=== PATIENT | female | born 1930 | race Caucasian/White ===

== ENCOUNTER 2016-10-17 19:33 | Inpatient (IN) | payer MEDICARE, BC ==
--- NOTE | ~2016-10-17 | CN ---
Consultation Report [facility] [address] [place]. [address] NAME: DASIA ROMERO : 31 STATUS : ADM Viviana PAT#: [id number] AGE: 86 ADM/REG DATE : 10/17/16 MR#: [id number] REPORT SERV DATE: 10/19/16 DICTATED BY: PHAN SOW DATE: 10/19/16 REPORT STATUS : Draft TRANSCRIBED BY: MODFrancine DATE: 10/19/16 CARDIOLOGY CONSULTATION NOTE DATE OF CONSULTATION: 10/19/2016 REASON FOR CONSULTATION: Elevated cardiac biomarkers in an 86-year-old woman with a history of paroxysmal atrial fibrillation. HISTORY OF PRESENT ILLNESS: Ms Romero is an 86-year-old woman with a history of partial colectomy and colostomy. The patient has a history of frequent partial small-bowel obstructions. The patient also has a history of paroxysmal atrial fibrillation, and has seen me in Cardiology Clinic for this complaint. The patient was admitted to [facility] with a 24 to 48 hour history of crampy abdominal pain, nausea, and vomiting. The patient was felt to have a partial small-bowel obstruction. This apparently is a frequent problem for the patient. Her symptoms generally resolve with rehydration and mild treatment with laxatives. The patient was noted to be in atrial fibrillation with a rapid ventricular response at the time of her admission. However, the patient denies any significant chest pain or dyspnea. Since her admission, the patient has been started on IV fluid repletion. She is now taking her p.o. medications, and is back on metoprolol 25 mg p.o. twice daily. At this time, the patient's heart rate is well-controlled with a rate of approximately 90 beats per minute. The patient presently denies any unusual chest pain, dyspnea, orthopnea, palpitations, or dizziness. She reports that she is hungry, and that her nausea has resolved. PAST MEDICAL HISTORY: 1. History of multiple partial small-bowel obstructions. 2. Paroxysmal atrial fibrillation. 3. Mild aortic valve stenosis. 4. Hypertension. 5. Gastroesophageal reflux disease. 6. Peptic ulcer disease. 7. Rectal tumor status post partial colectomy. 8. Alzheimer's type dementia. PAST SURGICAL HISTORY: 1. Partial bowel resection with colostomy. 2. Hysterectomy. 3. Appendectomy. 4. Cholecystectomy. 5. Hip replacement. 6. Back surgery. 7. Previous colostomy revision. Consultation Report [place] [id number] [place]. [address] NAME: DASIA ROMERO : 31 STATUS : ADM Viviana PAT#: [id number] AGE: 86 ADM/REG DATE : 10/17/16 MR#: [id number] REPORT SERV DATE: 10/19/16 DICTATED BY: PHAN SOW DATE: 10/19/16 REPORT STATUS : Draft TRANSCRIBED BY: ROSALIND DATE: 10/19/16 FAMILY HISTORY: Negative for early coronary heart disease or sudden cardiac . SOCIAL HISTORY: No significant history of tobacco, alcohol, or drug use. The patient lives at home with her . ALLERGIES: THE PATIENT HAS DOCUMENTED ALLERGIES TO PENICILLINS WHICH CAUSES SWELLING AND ITCHING; AND ADHESIVE TAPE, WHICH ALSO CAUSES A RASH AND ITCHING. HOME MEDICATIONS: 1. Acetaminophen 1 g p.o. three times daily as needed for pain. 2. Eliquis 2.5 mg p.o. twice daily. 3. Atorvastatin 20 mg p.o. q.h.s. 4. Calcitonin nasal spray one spray in alternating nostrils daily. 5. Os-Chaparro D 500 mg p.o. daily. 6. Vitamin D 2000 units p.o. twice daily. 7. Nexium 20 mg p.o. q.a.m. 8. Lisinopril/hydrochlorothiazide 20/12.5 mg 1 tablet p.o. q.p.m. 9. Namenda 10 mg p.o. twice daily. 10.Metoprolol tartrate 25 mg p.o. twice daily. 11.Multivitamin 1 tablet daily. 12.MiraLAX powder 1 packet daily. 13.Exelon patch 13.3 mg topical q.a.m. REVIEW OF SYSTEMS: A complete 12-system review was performed. This is noncontributory except for the pertinent positives and negatives noted in the history of present illness above. PHYSICAL EXAMINATION: VITAL SIGNS: Temperature is 98.9 degrees Fahrenheit, blood pressure is 102/50 mmHg, respirations 14, and oxygen saturation is 96% on a 2 L nasal cannula. CONSTITUTIONAL: The patient is a frail elderly appearing white woman, who is in no acute distress. EYES: PERRL, EOMI, clear conjunctiva. HEAD/MNT: NCAT with moist mucous membranes and grossly normal hard and soft palate. NECK: Supple with no obvious thyromegaly or lymphadenopathy CARDIOVASCULAR: There is an irregularly irregular rhythm with a variable S1 and a slightly diminished aortic component of the second heart sound. There is a grade 2/6 systolic ejection murmur noted at the right upper sternal border radiating to the sternal notch. The jugular venous pressure is normal. PULMONARY: Clear to auscultation bilaterally with no wheezing, rales, rhonchi, or dullness to percussion. ABDOMEN: A colostomy bag is in place in the left lower quadrant. The abdomen is soft, nontender, nondistended with normoactive bowel sounds. There is no tenderness to palpation noted. The colostomy is clean, dry, and intact. EXTREMITIES: There is no clubbing, cyanosis, or edema noted at this time. Consultation Report [address] [place]. [address] NAME: DSAIA ROMERO : 31 STATUS : ADM Viviana PAT#: [id number] AGE: 86 ADM/REG DATE : 10/17/16 MR#: [id number] REPORT SERV DATE: 10/19/16 DICTATED BY: PHAN SOW DATE: 10/19/16 REPORT STATUS : Draft TRANSCRIBED BY: ROSALIND DATE: 10/19/16 MUSCULOSKELETAL: Grossly normal strength and range of motion in all extremities INTEGUMENTARY: Skin appears intact with no bruises, wounds or active lesions noted NEURO/PSYC: Alert and oriented x3, with no dysarthria, facial droop or lateralizing weakness noted. DIAGNOSTIC DATA: 12-lead EKG: The patient's 12-lead EKG dated 10/17/2016 shows atrial fibrillation with a rapid ventricular response, and occasional PVCs versus aberrantly conducted complexes. There are nonspecific ST/T-wave abnormalities. CHEST X-RAY: The chest x-ray shows no acute cardiopulmonary process. LABORATORY DATA: Labs from 10/20/2015 show a urine culture which is positive for 50,000 units/mL of gram-negative bacilli. CBC shows a white blood cell count of 4.6, hemoglobin of 8.6, hematocrit of 27, and platelets 144. Electrolytes show a sodium of 144, potassium 3.4, chloride is 110, CO2 of 25, BUN 25, creatinine is 1.34, glucose is 118, calcium 7.5, magnesium 2.1, and phosphorus is 2.3. The patient has had several sets of troponin I. The most recent troponin, which is also the highest troponin as 0.09. ASSESSMENT AND PLAN: 1. Atrial fibrillation with rapid ventricular response: The patient's heart rate is decreased with the reinstitution of metoprolol and with IV rehydration. No surgery is planned at this time, so I would recommend the patient continue her home dose of Eliquis 2.5 mg twice daily. Should the patient not spontaneously convert, we will consider DC cardioversion. I do not feel that transesophageal echocardiography will be necessary, as the patient has been on oral anticoagulant more less continuously since July of 2016. She has been in atrial fibrillation for less than 48 hours. 2. Elevated cardiac biomarkers: This represents a demand ischemia/WHO type 2 myocardial infarction from atrial fibrillation with rapid ventricular response, dehydration, and partial small bowel obstruction. The patient has had a fairly recent low risk stress test. Her left ventricular systolic function is normal based on recent echocardiogram. The patient is having no symptoms of angina. I would recommend no further treatment, excepting continuation of atorvastatin, and Eliquis. We will consider adding aspirin 81 mg daily to the patient's medication regimen. 3. Aortic stenosis: The patient has a history of mild aortic valve stenosis. Her exam is consistent with mild aortic stenosis. I would recommend no further workup at this time. Thank you for allowing me to participate in the care Ms Romero. The Cardiology Service will continue to follow the patient during this hospitalization. GLADYS/MODL Phan Sow MD Consultation Report [address] [place]. [id number] NAME: DASIA ROMERO : 31 STATUS : ADM Viviana PAT#: [id number] AGE: 86 ADM/REG DATE : 10/17/16 MR#: [id number] REPORT SERV DATE: 10/19/16 DICTATED BY: PHAN SOW DATE: 10/19/16 REPORT STATUS : Draft TRANSCRIBED BY: ANJELICAL DATE: 10/19/16 / [id number] CC: Maggie Duque M.D.
--- NOTE | ~2016-10-17 | HP ---
History And Physical [place] [id number] [facility] [place]. [address] NAME: DASIA ROMERO : 31 STATUS : ADM Viviana PAT#: [id number] AGE: 86 ADM/REG DATE : 10/17/16 MR#: [id number] REPORT SERV DATE: 10/17/16 DICTATED BY: FIONA JACINTO DATE: 10/17/16 REPORT STATUS : Draft TRANSCRIBED BY: MODL DATE: 10/17/16 DATE OF ADMISSION: 10/17/2016 CHIEF COMPLAINT: Abdominal pain with nausea, vomiting x2 days. HISTORY OF PRESENT ILLNESS: The patient is an 86-year-old female with past medical history of coronary artery disease, recent diagnosis of atrial fibrillation this year on anticoagulation, ulcers, reflux, colectomy with ostomies with history of rectal cancer followed by Dr. Pate, who has had multiple admissions for bowel obstruction, who was having bowel obstruction over the last few days in which she has not taken p.o. medications. Symptoms have been constant, moderate severity, has had mild pressure discomfort with cramping episodes and no output over the last 24 to 48 hours. There is no radiating of symptoms but has had nausea, vomiting, weakness, palpitations. Upon arrival the patient was noted to be at a heart rate of 150. Symptoms are worsened with palpation but no relieving symptoms. Symptoms still currently present but improved after having medications as nausea has now resolved. REVIEW OF SYSTEMS: For additional review of systems due to the patient's mild dementia, the patient grossly denies majority of review of systems, so review of systems mainly taken from family member at bedside which includes weakness, tachycardia, nausea, vomiting, abdominal pain, decreased p.o. intake, abdominal discomfort, decreased bowel output. Otherwise 10-point reported negative. PAST MEDICAL HISTORY: Hypertension, reflux, rectal tumor, duodenal ulcer, and NH. SURGICAL HISTORY: APR, hysterectomy, appendectomy, cholecystectomy, hip replacement, back surgery, colostomy revision. ALLERGIES: PENICILLIN AND TAPE. SOCIAL HISTORY: No reported smoking, alcohol, or illicits. Lives with who has Parkinson's. FAMILY HISTORY: Negative current acute problem. MEDICATIONS: Tylenol, Eliquis, Lipitor, calcitonin, Os-Chaparro vitamin D, Nexium, Zestoretic, Namenda, Lopressor, multivitamin, MiraLAX, Exelon. EKG rate of 153 atrial fibrillation with RVR. PHYSICAL EXAMINATION: VITAL SIGNS: The patient's blood pressure 104/56, pulse anywhere from 80 to 115, respirations 18, temperature 97.6, O2 sats 97%. GENERAL: Elderly slightly frail, no acute distress. EYES: No scleral icterus. EOMI. History And Physical [address] [address] NAME: DASIA ROMERO : 31 STATUS : ADM Viviana PAT#: [id number] AGE: 86 ADM/REG DATE : 10/17/16 MR#: [id number] REPORT SERV DATE: 10/17/16 DICTATED BY: FIONA JACINTO DATE: 10/17/16 REPORT STATUS : Draft TRANSCRIBED BY: ROSALIND DATE: 10/17/16 ENT: Dry mucous membranes. Nares patent. CV: Irregular. When rate controlled is 1 to 1 beat pulse ratio however had tachycardic episodes greater than 130. The patient does have a 2 to 1 beat pulse ratio. No pedal edema. GI: Soft, no current tenderness at this time. Negative rebound. No output and ostomy at this time but clean stoma. : Deferred. MUSCULOSKELETAL: Moves all extremities x4. SKIN: Warm and dry. LYMPH: No cervical or supraclavicular lymphadenopathy. HEME: No bleeding or bruising. NEURO: Alert and oriented. Moves all extremities. Alert and oriented to person and situation, mildly disoriented to most recent history with dementia of daily events. PSYCH: Appropriate mood and affect, pleasant. DATA: CT of abdomen and pelvis mildly dilated small bowel left mid abdomen and a few scattered air-fluid levels suggesting a very low grade partial small bowel versus asymmetric ileus. Stable changes of prostatectomy and partial sigmoidectomy with colostomy site. Stable soft tissue thickening presacral space, gas air bubble could represent stable small fistula tract similar seen on 03/13/2016 nonspecific ascites around the liver and spleen slightly more prominent than recent CT on 08/11/2016. No pneumoperitoneum. Stable postsurgical changes of cholecystectomy, appendectomy, hysterectomy, right total hip arthroplasty, chronic insufficiency fracture T12 and fusion lower lumbosacral spine. LABS: Urinalysis moderate leuk esterase with 27. WBCs 100 protein. CMP: BUN and creatinine 34 and 1.55, troponin 0.08, calcium 7.9, lactate 2.0. CBC: WBC count 6.2, H and H 11.7 and 35.4, MCV 96.5, platelets 215. ASSESSMENT AND PLAN: 1. Atrial fibrillation. 2. Partial obstruction mild ileus. 3. Azotemia dehydration. 4. Hypotension. 5. Hyperlipidemia. 6. Rectal cancer with ostomy history. 7. Questionable urinary tract infection. PLAN: 1. For atrial fibrillation on Eliquis, has not been able to take medications over the last 24 to 48 48 hours. The patient was bolused Cardizem in the emergency room and is on drip at this time, but did have resultant drop in blood pressure due to hypovolemia, given IV fluids, closely monitor on cardiac tele until able to tolerate p.o. metoprolol. The patient has been off metoprolol greater than 48 hours and likely caused decompensation and exacerbated by small ileus. We will provide Lovenox until able to restart Eliquis. 2. Partial obstruction ileus. Restart bowel regimen Reglan and monitor KUB in a.m. 3. Azotemia dehydration. IV fluids. History And Physical [address] [address] NAME: DASIA ROMERO : 31 STATUS : ADM Viviana PAT#: [id number] AGE: 86 ADM/REG DATE : 10/17/16 MR#: [id number] REPORT SERV DATE: 10/17/16 DICTATED BY: FIONA JACINTO DATE: 10/17/16 REPORT STATUS : Draft TRANSCRIBED BY: MODL DATE: 10/17/16 4. Hypotension. IV fluids given in emergency room appears to be responding and likely secondary to Cardizem bolus hopefully able to wean off Cardizem bolus as the patient continues to be transitioned back to beta-sondra. 5. Hyperlipidemia, statin when tolerating p.o. 6. Rectal cancer ostomy. Follows with Dr. Pate, courtesy notify with repeat episodes ileus. 7. Questionable UTI. Does not appear symptomatic. No leukocytosis. We will check procalcitonin. Monitor WBC count. Concern for clean-catch monitor cultures has had negative urine cultures in the past. We will hold antibiotics at this time. Start if clinical indication noted. DDN/MODL Fiona Jacinto MD / [id number] CC: Maggie Quiroga M.D.
--- NOTE | ~2016-10-17 | DS ---
Discharge Summary [facility] [address] [place]. [address] NAME: DASIA ROMERO : 31 STATUS : DIS IN PAT#: [id number] AGE: 86 ADM/REG DATE : 10/17/16 MR#: [id number] REPORT SERV DATE: 10/21/16 DICTATED BY: MEAGHAN DONIS DATE: 10/20/16 REPORT STATUS : Draft TRANSCRIBED BY: MODL DATE: 10/20/16 ADMISSION DATE: 10/17/2016 DISCHARGE DATE: 10/20/2016 CONSULTANTS: Marcela Salazar M.D., Colorectal Surgery; Blade Sow M.D., Cardiology. DISCHARGE DIAGNOSES: 1. Transient small-bowel obstruction versus ileus. 2. Paroxysmal atrial fibrillation, status post rapid ventricular response. 3. Demand ischemia/World Health Organization type 2 myocardial infarction from rapid ventricular response. 4. Mild aortic stenosis. 5. Mild mitral stenosis. 6. Senile dementia. 7. Previous colon cancer resected many years ago with a current left lower quadrant colostomy. 8. Mild chronic normocytic anemia. 9. Acute kidney injury superimposed on stage 3 chronic kidney disease. 10.Hypokalemia. 11.Hypertension. 12.Hard of hearing. Many years ago, the patient had colon cancer, treated with surgery. She has had a left lower quadrant colostomy. She has had multiple hospitalizations for partial small bowel obstruction. She presented to our emergency room complaining of abdominal pain, nausea, and vomiting for 24 to 48 hours. In the ER, she also was noted to have atrial fibrillation with rapid ventricular response, and she was referred to our team for inpatient evaluation. Initial CT scan of the abdomen and pelvis revealed mildly dilated small bowel, left abdomen; and a few scattered air-fluid levels, left upper quadrant, suggesting low-grade partial small-bowel obstruction versus asymmetric small bowel ileus. She has changes of her proctectomy and partial sigmoidectomy with a colostomy left lower abdomen. She has stable soft tissue thickening in the presacral space with a small gas bubbles similar to March 2016. Nonspecific trace ascites along the liver and spleen, stable postsurgical changes of cholecystectomy, appendectomy, hysterectomy, and right total hip arthroplasty, and chronic T12 fracture and fusion of the lower lumbar spine. Her chest x-ray on admission showed hiatal hernia, and clear lung dyson. She was kept n.p.o. She was given IV fluids. She was placed on a Cardizem infusion. She was seen by Colorectal Surgery, Dr. Salazar. She added some MiraLAX and felt the patient can gradually start oral diet. The patient's bowels started to move and her partial small-bowel obstruction resolved. She was able to advance her diet. She was seen by her Cardiology team with Dr. Sow from [facility]. They agreed with restarting her oral metoprolol and her Eliquis. They were planning to do an elective Discharge Summary [place] [id number] [place]. [address] NAME: DASIA ROMERO : 31 STATUS : DIS IN PAT#: [id number] AGE: 86 ADM/REG DATE : 10/17/16 MR#: [id number] REPORT SERV DATE: 10/21/16 DICTATED BY: MEAGHAN DONIS DATE: 10/20/16 REPORT STATUS : Draft TRANSCRIBED BY: ROSALIND DATE: 10/20/16 cardioversion to try to achieve sinus rhythm. However, early on the morning of 10/20/2016, she converted back into sinus rhythm, so they canceled the planned cardioversion. Her last echocardiogram on 07/29/2016 showed left atrial size 4.1 cm, left ventricular ejection fraction of 60% to 65%, mild aortic stenosis with aortic valve area of 1.4 cm2, mild mitral stenosis with mitral valve area of 2.2 cm2, moderate mitral regurgitation. Her TSH on 07/28/2016 was 1.97. Current troponins started at 0.08 and 0.13, then 0.09. Dr. Sow and I think this is due to the rapid ventricular response causing a type 2 demand injury. The patient has been running hypokalemic, some of this could be from her nausea and vomiting, but she also at home does take hydrochlorothiazide as part of one of her medications, so this will need longitudinal followup. She also has what appears to be a chronic normocytic anemia. Her stool guaiac here was negative. Her hemoglobin at discharge is 9.4, platelets are normal at 167,000. She is alert. She is very forgetful. This is part of her baseline dementia. Her states he is in charge of her medications at this time. Daughter is updated at the bedside as well. We have talked with the patient and the about the importance of presenting to the emergency room sooner if she starts again having nausea and vomiting. Dr. Inga Alves wants the patient on MiraLAX twice a day to try to help reduce this problem. DISCHARGE MEDICATIONS: Will include Eliquis 2.5 mg b.i.d., Lipitor 20 mg at bedtime, Miacalcin one spray in alternating nostrils daily, Namenda 10 mg twice a day, metoprolol 12.5 mg twice a day, Nexium 40 mg daily, MiraLAX powder one packet twice a day, Exelon 13.3 mg patch changed every morning, Senokot [id number] p.r.n., Tylenol 1000 mg t.i.d. p.r.n. pain, Zestoretic 20/12.5 one tablet every morning, vitamin D 2000 units twice a day, Os-Chaparro 500 mg daily, multivitamin once a day She is to follow up with her PCP, Dr. Blade Schreiber, within one week and to follow up with her sandwich counter attendant, Dr. Blade Sow, at [facility] in four weeks approximately. I spent 33 minutes today with the patient, with her , daughter, and family at the bedside and with discharge planning. MARIELLE/ROSALIND Meaghan Donis M.D. / [id number] CC: Maggie Duque M.D. Discharge Summary [address] [address] NAME: DASIA ROMERO : 31 STATUS : DIS IN [facility]#: [id number] AGE: 86 ADM/REG DATE : 10/17/16 MR#: [id number] REPORT SERV DATE: 10/21/16 DICTATED BY: MEAGHAN DONIS DATE: 10/20/16 REPORT STATUS : Draft TRANSCRIBED BY: MODL DATE: 10/20/16 Blade Sow MD
--- NOTE | ~2016-10-17 | HP ---
History And Physical [place] [id number] [facility] [place]. [address] NAME: DASIA ROMERO : 31 STATUS : ADM Viviana PAT#: [id number] AGE: 86 ADM/REG DATE : 10/17/16 MR#: [id number] REPORT SERV DATE: 10/18/16 DICTATED BY: JULIA SALAZAR DATE: 10/18/16 REPORT STATUS : Draft TRANSCRIBED BY: MODL DATE: 10/18/16 DATE OF ADMISSION: 10/17/2016 REASON FOR CONSULTATION: Ileus versus small-bowel obstruction. HISTORY OF PRESENT ILLNESS: Ms. Romero is an 86-year-old female who is very well known to me. She was admitted on 10/17/2016 to the hospitalist with an ileus. She had an APR in the distant past by Dr. Darrian France and gets admitted multiple times a year with small-bowel obstruction which was usually when she forgets to take her MiraLAX, becomes dehydrated, and then has decreased output. Usually, when a small-bowel follow-through was performed, there was no transition zone. She complains now with 24-48 hours of crampy abdominal pain, nausea, and vomiting. Please see Dr. Lopez's dictation from 10/17/2016 for past medical history, past surgical history, allergies, medications, social history, family history. REVIEW OF SYSTEMS: As in the HPI, otherwise, negative. PHYSICAL EXAMINATION: VITAL SIGNS: 98.4, 95, 18, 93/51. GENERAL: Alert, elderly white female, in no acute distress. HEENT: Normocephalic, atraumatic. EOMI. PERRLA. Oropharynx is clear. NECK: Supple. No lymphadenopathy. LUNGS: Clear to auscultation bilaterally. HEART: Regular rate and rhythm. ABDOMEN: Distended, soft. Mildly tender. The colostomy is pink and viable with scant output. EXTREMITIES: Moves all extremities well. NEURO: Cranial nerves 2 through 12 intact. No rashes. IMAGING: CT scan shows mildly dilated small bowel with air-fluid levels measuring 3.2 mm in diameter. There is no transition zone. LABORATORY DATA: White count is 5.3, H and H 9.6 and 29.4, platelets of 160. Electrolytes within normal range. Creatinine has improved from 1.55 on admission to 1.28, consistent with dehydration. Her troponins are increasing from 0.08 to 0.13, and the patient is currently in x-ray. Her UA is dirty. ASSESSMENT AND PLAN: Small-bowel obstruction versus ileus secondary to dehydration. I would stop the Reglan at this time because it simply causes crampy abdominal pain. The focus should be on hydration, and I would recommend a small-bowel follow-through, which will be diagnostic as well as therapeutic. To remedy the situation, we also need to notify Dr. Pang with Cardiology of the patient's rising troponins. It is okay to start short-term anticoagulation. It is my pleasure participating in the care of your patient. History And Physical [address] [place]. [address] NAME: DASIA ROMERO : 31 STATUS : ADM Viviana PAT#: [id number] AGE: 86 ADM/REG DATE : 10/17/16 MR#: [id number] REPORT SERV DATE: 10/18/16 DICTATED BY: JULIA SALAZAR DATE: 10/18/16 REPORT STATUS : Draft TRANSCRIBED BY: ROSALIND DATE: 10/18/16 MAXWELL/ROSALIND Julia Salazar M.D. / [id number] CC: Maggie Quiroga M.D.
[2016-10-17 19:33] LABS: BASOPHILS 0.3 %; BASOPHILS ABSOLUTE 0.02 10/3/uL (0.0-0.16); EOSINOPHILS 1.6 %; HEMOGLOBIN 11.7 g/dL (12.0-16.0); IMMATURE GRANULOCYTES 0.2 %; IMMATURE GRANULOCYTES ABSOLUTE 0.01 10/3/uL (0.0-0.11); LYMPHOCYTES 19.1 %; LYMPHOCYTES ABSOLUTE 1.18 10/3/uL (0.67-4.30); MEAN CORPUS HGB CONC 33.1 g/dL (32.0-36.0); MEAN CORPUSCULAR HEMOGLOB 31.9 pg (26.0-34.0); MEAN CORPUSCULAR VOLUME 96.5 fL (80-100); MEAN PLATELET VOLUME 10.8 fL (9.2-13.0); MONOCYTES 15.5 %; MONOCYTES ABSOLUTE 0.96 10/3/uL (0.21-1.20); NEUTROPHILS 63.3 %; NEUTROPHILS ABSOLUTE 3.92 10/3/uL (2.02-8.40); PLATELET COUNT 215 10/3/uL (150-400); RBC DISTRIBUTION WIDTH 13.5 % (12.0-16.0); RED CELL COUNT 3.67 10/6/uL (4.0-5.6); WHITE BLOOD CELLS 6.2 10/3/uL (4.5-10.5)
[~2016-10-17 19:33] MED LIST: ACET500CAP PO; ADVIL PO; ARICEPT10 PO; ASAB PO; BEN25 PO; BENADRYL 50 MG50 MG PO; CENTRUM PO; CENTRUM SILVER PO; CENTRUM TAB1 TAB PO; ELIQUIS 2.5 MG2.5 MG PO; EXELON1 EACH TOP; FORTICAL200 MG/ACT NAS; IBU400 PO; LIPITOR20 PO; LOP25 PO; MIACALCIN NAS; MIRALAX POWDER1 PKT PO; MIRALAXPKT PO; MULTIVIT/MIN PO; NAMENDA10 MG PO; NEXIUM20 M1 PO; NEXIUM40 PO; OS500+D PO; PCET PO; PR25 PO; PRINZIDE1 TA1 PO; TRAZ50 PO; VITAMIN D1000 UNI1 PO; VITE PO; ZESTORETIC PO; ZESTORETIC1 TA1 PO
[2016-10-17 19:34] LABS: HEMATOCRIT 35.4 % (36.0-48.0); MANUAL DIFF NO %
[2016-10-17 19:51] LABS: A/G RATIO 0.9 (0.7-1.9); ALKALINE PHOSPHATASE 49 U/L (45-117); CALCIUM, SERUM 7.9 MG/DL (8.5-10.4); CHLORIDE, SERUM 105 MMOL/L (96-112); CO2 (CARBON DIOXIDE) 29 MMOL/L (24-34); CREATININE 1.55 MG/DL (0.55-1.02); GFR AFRICAN AMERICAN 35 ML/MIN (>=60); GFR NON AFRICAN AMERICAN 30 ML/MIN (>=60); GLOBULIN 3.2 G/DL (2.5-4.1); GLUCOSE, SERUM 109 MG/DL (60-99); POTASSIUM, SERUM 3.8 MMOL/L (3.5-5.3); SGOT(AST) 16 U/L (5-40); SGPT(ALT) 16 U/L (5-65); SODIUM, SERUM 145 MMOL/L (135-148); TOTAL BILIRUBIN 0.5 MG/DL (0-1.2); TOTAL PROTEIN 6.2 G/DL (6.0-8.5)
[2016-10-17 19:55] LABS: BUN (BLOOD UREA NITROGEN) 34 MG/DL (6-23)
[2016-10-17 19:56] LABS: TROPONIN I 0.08 NG/ML (<0.05)
[2016-10-17 20:09] LABS: ASCORBIC ACID (UR NOT ORDER) NEG (NEG); BILIRUBIN, URINE NEGATIVE (NEG); ER URINALYSIS TAT 0 Hrs 11 Mins; KETONE, URINE NEGATIVE (NEG); LEUKOCYTE ESTERASE(NOT OR MOD (NEG); NITRITE (URINE) NEG (NEG); WBC (NOT ORDERED) (RFLEX) 27 (0-5)
[2016-10-17] MEDS ORDERED: VITAMIN D2000 UNIT PO (20:38)
[2016-10-17] MEDS ORDERED: OS500+D PO (20:47)
[2016-10-18 03:50] LABS: BASOPHILS 0.2 %; BASOPHILS ABSOLUTE 0.01 10/3/uL (0.0-0.16); EOSINOPHILS 2.8 %; EOSINOPHILS ABSOLUTE 0.15 10/3/uL (0.0-0.53); HEMATOCRIT 29.4 % (36.0-48.0); HEMOGLOBIN 9.6 g/dL (12.0-16.0); IMMATURE GRANULOCYTES 0.2 %; IMMATURE GRANULOCYTES ABSOLUTE 0.01 10/3/uL (0.0-0.11); LYMPHOCYTES 19.2 %; LYMPHOCYTES ABSOLUTE 1.01 10/3/uL (0.67-4.30); MANUAL DIFF NO %; MEAN CORPUS HGB CONC 32.7 g/dL (32.0-36.0); MEAN CORPUSCULAR HEMOGLOB 31.5 pg (26.0-34.0); MEAN CORPUSCULAR VOLUME 96.4 fL (80-100); MEAN PLATELET VOLUME 10.7 fL (9.2-13.0); MONOCYTES 14.6 %; MONOCYTES ABSOLUTE 0.77 10/3/uL (0.21-1.20); NEUTROPHILS ABSOLUTE 3.32 10/3/uL (2.02-8.40); PLATELET COUNT 160 10/3/uL (150-400); RBC DISTRIBUTION WIDTH 13.6 % (12.0-16.0); RED CELL COUNT 3.05 10/6/uL (4.0-5.6); WHITE BLOOD CELLS 5.3 10/3/uL (4.5-10.5)
[2016-10-18 04:07] LABS: BUN (BLOOD UREA NITROGEN) 32 MG/DL (6-23); CHLORIDE, SERUM 110 MMOL/L (96-112); CO2 (CARBON DIOXIDE) 26 MMOL/L (24-34); CREATININE 1.28 MG/DL (0.55-1.02); GFR AFRICAN AMERICAN 44 ML/MIN (>=60); GFR NON AFRICAN AMERICAN 38 ML/MIN (>=60); GLUCOSE, SERUM 96 MG/DL (60-99); POTASSIUM, SERUM 3.5 MMOL/L (3.5-5.3); SODIUM, SERUM 146 MMOL/L (135-148)
[2016-10-18 04:13] LABS: CALCIUM, SERUM 9.1 MG/DL (8.5-10.4); TROPONIN I 0.13 NG/ML (<0.05)
[2016-10-18 07:03] LABS: PROCALCITONIN 0.12 ng/mL (<0.5)
[2016-10-19 05:26] LABS: BASOPHILS 0.2 %; BASOPHILS ABSOLUTE 0.01 10/3/uL (0.0-0.16); EOSINOPHILS 5.9 %; EOSINOPHILS ABSOLUTE 0.27 10/3/uL (0.0-0.53); HEMATOCRIT 26.8 % (36.0-48.0); HEMOGLOBIN 8.6 g/dL (12.0-16.0); IMMATURE GRANULOCYTES 0.2 %; IMMATURE GRANULOCYTES ABSOLUTE 0.01 10/3/uL (0.0-0.11); LYMPHOCYTES 18.6 %; LYMPHOCYTES ABSOLUTE 0.85 10/3/uL (0.67-4.30); MEAN CORPUS HGB CONC 32.1 g/dL (32.0-36.0); MEAN CORPUSCULAR HEMOGLOB 31.2 pg (26.0-34.0); MEAN CORPUSCULAR VOLUME 97.1 fL (80-100); MEAN PLATELET VOLUME 10.5 fL (9.2-13.0); MONOCYTES 10.5 %; MONOCYTES ABSOLUTE 0.48 10/3/uL (0.21-1.20); NEUTROPHILS 64.6 %; NEUTROPHILS ABSOLUTE 2.95 10/3/uL (2.02-8.40); PLATELET COUNT 144 10/3/uL (150-400); RBC DISTRIBUTION WIDTH 13.2 % (12.0-16.0); RED CELL COUNT 2.76 10/6/uL (4.0-5.6); WHITE BLOOD CELLS 4.6 10/3/uL (4.5-10.5)
[2016-10-19 05:27] LABS: MANUAL DIFF NO %
[2016-10-19 05:42] LABS: CHLORIDE, SERUM 110 MMOL/L (96-112); CO2 (CARBON DIOXIDE) 25 MMOL/L (24-34); CREATININE 1.34 MG/DL (0.55-1.02); GFR AFRICAN AMERICAN 42 ML/MIN (>=60); GFR NON AFRICAN AMERICAN 36 ML/MIN (>=60); PHOSPHORUS, SERUM 2.3 MG/DL (2.5-4.5); POTASSIUM, SERUM 3.4 MMOL/L (3.5-5.3); SODIUM, SERUM 144 MMOL/L (135-148)
[2016-10-19 05:43] LABS: BUN (BLOOD UREA NITROGEN) 25 MG/DL (6-23); CALCIUM, SERUM 7.5 MG/DL (8.5-10.4); GLUCOSE, SERUM 118 MG/DL (60-99)
[2016-10-20 07:05] LABS: BASOPHILS 0.4 %; BASOPHILS ABSOLUTE 0.02 10/3/uL (0.0-0.16); EOSINOPHILS 5.4 %; EOSINOPHILS ABSOLUTE 0.27 10/3/uL (0.0-0.53); HEMATOCRIT 28.2 % (36.0-48.0); HEMOGLOBIN 9.4 g/dL (12.0-16.0); IMMATURE GRANULOCYTES 0.2 %; IMMATURE GRANULOCYTES ABSOLUTE 0.01 10/3/uL (0.0-0.11); LYMPHOCYTES 21.6 %; LYMPHOCYTES ABSOLUTE 1.08 10/3/uL (0.67-4.30); MEAN CORPUS HGB CONC 33.3 g/dL (32.0-36.0); MEAN CORPUSCULAR HEMOGLOB 32.1 pg (26.0-34.0); MEAN CORPUSCULAR VOLUME 96.2 fL (80-100); MEAN PLATELET VOLUME 10.5 fL (9.2-13.0); MONOCYTES 11.2 %; MONOCYTES ABSOLUTE 0.56 10/3/uL (0.21-1.20); NEUTROPHILS 61.2 %; NEUTROPHILS ABSOLUTE 3.07 10/3/uL (2.02-8.40); PLATELET COUNT 167 10/3/uL (150-400); RBC DISTRIBUTION WIDTH 13.2 % (12.0-16.0); RED CELL COUNT 2.93 10/6/uL (4.0-5.6)
[2016-10-20 07:07] LABS: MANUAL DIFF NO %
[2016-10-20 09:58] LABS: BUN (BLOOD UREA NITROGEN) 16 MG/DL (6-23); CALCIUM, SERUM 8.1 MG/DL (8.5-10.4); CHLORIDE, SERUM 111 MMOL/L (96-112); CO2 (CARBON DIOXIDE) 23 MMOL/L (24-34); CREATININE 1.13 MG/DL (0.55-1.02); GFR AFRICAN AMERICAN 51 ML/MIN (>=60); GFR NON AFRICAN AMERICAN 44 ML/MIN (>=60); GLUCOSE, SERUM 116 MG/DL (60-99); SODIUM, SERUM 144 MMOL/L (135-148)
[2016-10-20] MEDS ORDERED: SENTAB PO (10:26)
== END 2016-10-20 11:15 | disposition home or self-care (01) | DRG 389 ==
LOC: ER 19:33 → 2SO 22:29
PROVIDERS: Hospitalist; Nurse Practitioner Acute Care; Student in an Organized Health Care Education/Training Program; Surgery
DX: K56.7 Ileus, unspecified (principal); N39.0 Urinary tract infection, site not specified; N17.9 Acute kidney failure, unspecified; I95.9 Hypotension, unspecified; I12.0 Hypertensive chronic kidney disease with stage 5 chronic kidney disease or end stage renal disease; I24.8 Other forms of acute ischemic heart disease; I48.0 Paroxysmal atrial fibrillation; K26.7 Chronic duodenal ulcer without hemorrhage or perforation; E87.6 Hypokalemia; N18.3 Chronic kidney disease, stage 3 (moderate); K56.60 Unspecified intestinal obstruction; G30.9 Alzheimer's disease, unspecified; F02.80 Dementia in other diseases classified elsewhere, unspecified severity, without behavioral disturbance, psychotic disturbance, mood disturbance, and anxiety; E86.0 Dehydration; G30.1 Alzheimer's disease with late onset; I34.2 Nonrheumatic mitral (valve) stenosis; I25.10 Atherosclerotic heart disease of native coronary artery without angina pectoris; K21.9 Gastro-esophageal reflux disease without esophagitis; I35.0 Nonrheumatic aortic (valve) stenosis; H91.90 Unspecified hearing loss, unspecified ear; Z53.8 Procedure and treatment not carried out for other reasons; I25.2 Old myocardial infarction; Z88.0 Allergy status to penicillin; Z93.3 Colostomy status; Z98.890 Other specified postprocedural states; Z85.038 Personal history of other malignant neoplasm of large intestine
CPT/HCPCS: 71010; 74020; 74176; 74250; 80048; 80053; 81001; 82272; 83605; 83735; 84100; 84145; 84484; 85025; 87086; 93005; 96361; 96374; 96375; 99285; A9270-GY; J2405; J2765